=== PATIENT | female | born 1945 | race Caucasian/White ===

== ENCOUNTER → 2016-05-04 | Outpatient (CLI) | payer MEDICARE ==
[~2016-05-04] MED LIST: ABILIFY2 MG PO; ANTIVERT/2525 MG PO; ASPIR LOW81 MG PO; B12,B-12,B 12500 MC1 PO; BAYER ASPIRIN325 MG PO; BUSPAR5 MG PO; CAPSAICIN T; CARDIZEM LA120 MG PO; CELEXA10 MG PO; CELEXA20 MG PO; CLONAZEPAM0.5 MG PO; CLONAZEPAM1 MG PO; Carafate1 GM PO; DEXILANT60 M1 PO; DIOVAN160 M1 PO; DIPHENHYDRAMINE25 M2 PO; KLONOPIN0.5 MG PO; KLONOPIN1 M1 PO; KLONOPIN1 MG PO; LIPITOR20 MG PO; NASONEX0.05 MG/AC NAS; PATADAY 2.5 ML2.5 M1 OP; POTASSIUM20 MEQ PO; PROTONIX40 MG PO; SUPER B COMPLEX PO; SYNTHROID0.025 MG PO; VITAMIN D31000 I1 PO; XARE20MG PO; [UNRECOGNIZED DRUG - CODE] PO; [UNRECOGNIZED DRUG - OTHER] PO
== END ==
LOC: MAMMO 03:01
DX: Z12.31 Encounter for screening mammogram for malignant neoplasm of breast (principal)

== ENCOUNTER 2016-07-26 08:21 | Emergency (ER) | payer MEDICARE ==
[~2016-07-26] VITALS: Ht 157.4 cm; Wt 49.9 kg
[2016-07-26 08:36] LABS: BASO % 0.5 % (0.0-1.0); EOS # 0.1 10*3/uL (0.0-0.4); EOS % 1.9 % (1.0-4.0); HEMATOCRIT 40.4 % (37.0-47.0); HEMOGLOBIN 13.7 g/dl (12.0-16.0); LYMPH # 1.5 10*3/uL (1.3-4.4); LYMPH % 39.5 % (27.0-41.0); MEAN CELL VOLUME 93.1 fl (81.0-99.0); MEAN CORPUSCULAR HGB 31.6 pg (27.0-31.0); MEAN CORPUSCULAR HGB CONC 33.9 g/dl (33.0-37.0); MEAN PLATELET VOLUME 10.2 fl (9.6-12.3); MONO # 0.3 10*3/uL (0.1-1.0); MONO % 8.7 % (3.0-9.0); NEUT # 1.8 10*3/uL (2.3-7.9); NEUT % 49.4 % (47.0-73.0); PLATELET COUNT AUTOMATED 192 10*3/uL (130-400); RED BLOOD COUNT 4.34 10*6/uL (4.10-5.10); RED CELL DISTRI WIDTH 13.2 % (0-14.5); WHITE BLOOD COUNT 3.7 10*3/uL (4.8-10.8)
[2016-07-26] MEDS ORDERED: BUSPAR15 MG PO (08:40)
[2016-07-26] MEDS ORDERED: XANAX0.5 MG PO (08:43)
[2016-07-26 08:44] LABS: INTERNATIONAL NORM RATIO 1.2 (2.0-3.5); PROTHROMBIN TIME 13.1 SECONDS (9.0-12.4)
[2016-07-26] MEDS ORDERED: VITAMIN B121000 MC1 PO (08:45)
[2016-07-26] MEDS ORDERED: MAPAP500 MG PO (08:45)
[2016-07-26 08:52] LABS: ALBUMIN 3.9 gm/dl (3.1-4.5); ALKALINE PHOSPHATASE 50 U/L (45-117); BILIRUBIN, TOTAL 0.5 mg/dl (0.2-1.0); BUN 14 mg/dl (7-24); CARBON DIOXIDE 28 mmol/L (21-32); CHLORIDE 106 mmol/L (98-107); EST GLOM FILT AFRICAN AMERICAN > 60 ml/min; GLUCOSE 82 mg/dL (65-99); MAGNESIUM 2.3 mg/dL (1.5-2.1); POTASSIUM 3.7 mmol/L (3.5-5.1); SGOT/AST 17 IU/L (3-35); SGPT/ALT 23 U/L (12-78); SODIUM 142 mmol/L (136-145); TOTAL PROTEIN 6.4 gm/dL (6.4-8.2)
[2016-07-26 08:54] LABS: TROPONIN I < 0.015 ng/ml (<0.045)
[2016-07-26] MEDS ORDERED: ZOLOFT50 MG PO (09:00)
[2016-07-26 10:42] VITALS: BP 132/71
== END 2016-07-26 10:51 | disposition home or self-care (01) ==
LOC: ED 08:21
PROVIDERS: Emergency Medicine
DX: R00.2 Palpitations (principal); I48.91 Unspecified atrial fibrillation; F32.9 Major depressive disorder, single episode, unspecified; I10 Essential (primary) hypertension; K21.9 Gastro-esophageal reflux disease without esophagitis; E03.9 Hypothyroidism, unspecified; E78.5 Hyperlipidemia, unspecified; Z90.49 Acquired absence of other specified parts of digestive tract; Z79.899 Other long term (current) drug therapy

== ENCOUNTER → 2016-08-23 | Day surgery (SDC) | payer MEDICARE ==
[~2016-08-23] VITALS: Ht 157.4 cm; Wt 49.9 kg
[~2016-08-23] MED LIST changes: +ANUCORT-HC25 MG RC; +BUSPAR15 MG PO; +FAMOTIDINE20 M1 PO; +MAPAP500 MG PO; +VITAMIN B121000 MC1 PO; +XANAX0.5 MG PO; +ZOLOFT50 MG PO
--- NOTE | ~2016-08-23 | O ---
[place], [place] OPERATIVE NOTE NAME: MIRIAN CABEZAS UNIT #: [id number] ROOM: DOCTOR: TRUE DOMINGOYOHAN BIRTHDATE: [birth year] DOS: 08/23/2016 HISTORY OF PRESENT ILLNESS: A 70-year-old patient who has presented with chief complaint of history of diarrhea, dyspepsia, chronic Protonix therapy, history of colonic polyp, change in bowel habit. ALLERGIES: To no known medication. FAMILY HISTORY: Noncontributory. PAST SURGICAL HISTORY: Hysterectomy. PAST MEDICAL HISTORY: Atrial fibrillation, depression, hypertension, hypercholesterolemia, hypothyroidism. SOCIAL HISTORY: Nonsmoker, nonalcohol consumer. PROCEDURE: Todays' procedure part of investigation is colonoscopy and panendoscopy. PREMEDICATION: Versed and Diprivan. SCOPE: Olympus forward viewing colonoscope 10L video. REPORT: After putting the patient in the left lateral position and after application of lubricant to the scope, the scope was introduced; thereafter, under direct visualization, advanced through the length of colon without difficulty. Moderate diverticulosis at the level of sigmoid colon was noticed. Base of the cecum explored, appendiceal orifice identified, and ileocecal valve was defined. Scope was gradually withdrawn back to the sigmoid colon. Sessile polypoid lesion with piecemeal polypectomy eradicated. Air was suctioned out. Back to the rectal pouch, GI reflection of the scope reveals small hemorrhoids, 1 particularly is more agitated and ulcerated at the rectal pouch, location is at 3 o'clock position. Photographed. Air was suctioned out. The patient extubated, tolerated the procedure well. IMPRESSION: Diverticulosis; sessile colonic polyp, sigmoid colon; rectal hemorrhoids. PLAN AND DISCUSSION: Anucort-HC suppository 1 at bedtime for 5 days and thereafter 1 p.r.n. There was no evidence of acute distress or diarrhea, perhaps bacterial overgrowth secondary to moderate diverticulosis is the culprit in her frequent stooling. We may be able to remedy this with addition of Questran 1 every day if the diarrhea continues. On the other hand, we are going to proceed with panendoscopy. [place], [place] OPERATIVE NOTE NAME: MIRIAN CABEZAS UNIT #: [id number] ROOM: DOCTOR: TRUE DOMINGO,YOHAN BIRTHDATE: [birth year] YOHAN BISWAS MD CM:OPRECORD:OPERATIVE NOTE [id number] CHERI BISWAS MD 08/23/16 1259 interface
--- NOTE | ~2016-08-23 | O ---
[place], [place] OPERATIVE NOTE NAME: MIRIAN CABEZAS UNIT #: [id number] ROOM: DOCTOR: TRUE DOMINGO,YOHAN BIRTHDATE: [birth year] DOS: 08/23/2016 INDICATIONS: The patient is a 70-year-old who has presented with persistent dyspepsia despite Protonix therapy. PROCEDURE: Today's procedure part of investigation is panendoscopy plus biopsy. PREMEDICATION: Versed and Diprivan. SCOPE: Olympus forward-viewing gastroscope Q10 video. REPORT: After putting the patient in the left lateral position and after application of lubricant to the scope, the scope was introduced. Thereafter, under direct visualization, I advanced through the length of esophagus without difficulty. Esophagus cervicothoracic distally within normal limits. Small hiatal hernia was noticed. Gastric pouch was entered. Multiple gastric polyps identified. 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 Polypectomy was done for sampling of the polyps. Gastric pouch was entered. Gastritis was seen. Antral biopsy obtained. Duodenal bulb, second and third part within normal limits. The patient was gradually extubated along the lesser curvature. Air was suctioned out. Tolerated the procedure well. IMPRESSION: 1. Small hiatal hernia, multiple gastric polyps, status post polypectomy, samples. 2. Gastritis, status post biopsy. PLAN AND DISCUSSION: This patient has been chronically on PPI therapy. 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 Therefore, I recommend to see if we can switch this patient to famotidine 20 mg 1 every day to see if removal of the PPI will correct the diarrhea as well and this is going to be undertaken here with that prescription on hand. We understand that for the first week she may have experience of dyspepsia because we have switched her from PPI to H2 ector; however, this can be managed with the fact that initially she can take Pepcid 20 mg b.i.d. for 3 days and gradually switching to 1 at night and further management as we go along. Photographic series have been attached to the chart for future reference. I thank you very much indeed for your kind referral. [place], [place] OPERATIVE NOTE NAME: MIRIAN CABEZAS UNIT #: [id number] ROOM: DOCTOR: TRUE DOMINGO,YOHAN BIRTHDATE: [birth year] YOHAN BISWAS MD CM:OPRECORD:OPERATIVE NOTE 1013 [id number] CHERI BISWAS MD 08/23/16 1304 interface
[2016-08-23 08:15] VITALS: BP 112/63
[2016-08-23 10:00] VITALS: BP 129/69
[2016-08-23 10:15] VITALS: BP 129/71
[2016-08-23 10:30] VITALS: BP 124/68
== END | disposition home or self-care (01) ==
LOC: SDC 08-18 12:30
DX: K63.5 Polyp of colon (principal); K29.50 Unspecified chronic gastritis without bleeding; K31.7 Polyp of stomach and duodenum; K57.30 Diverticulosis of large intestine without perforation or abscess without bleeding; K64.9 Unspecified hemorrhoids; K44.9 Diaphragmatic hernia without obstruction or gangrene; I48.91 Unspecified atrial fibrillation; F32.9 Major depressive disorder, single episode, unspecified; I10 Essential (primary) hypertension; E78.00 Pure hypercholesterolemia, unspecified; E03.9 Hypothyroidism, unspecified; Z90.710 Acquired absence of both cervix and uterus; K21.9 Gastro-esophageal reflux disease without esophagitis; F41.9 Anxiety disorder, unspecified; Z80.9 Family history of malignant neoplasm, unspecified; Z82.49 Family history of ischemic heart disease and other diseases of the circulatory system; Z82.5 Family history of asthma and other chronic lower respiratory diseases

== ENCOUNTER → 2016-12-27 | Outpatient (CLI) | payer MEDICARE | END | disposition home or self-care (01) | LOC: US 01:48 | DX: R10.13 Epigastric pain (principal); R19.09 Other intra-abdominal and pelvic swelling, mass and lump; Z90.49 Acquired absence of other specified parts of digestive tract ==

== ENCOUNTER → 2017-02-19 | Outpatient (CLI) | payer MEDICARE | LOC: MRI 03:44 | DX: K66.8 Other specified disorders of peritoneum (principal); K57.30 Diverticulosis of large intestine without perforation or abscess without bleeding; M51.36 Other intervertebral disc degeneration, lumbar region; M51.37 Other intervertebral disc degeneration, lumbosacral region; M51.26 Other intervertebral disc displacement, lumbar region; M51.27 Other intervertebral disc displacement, lumbosacral region; I10 Essential (primary) hypertension; N85.8 Other specified noninflammatory disorders of uterus; Z90.710 Acquired absence of both cervix and uterus; Z90.49 Acquired absence of other specified parts of digestive tract ==

== ENCOUNTER → 2017-06-13 | Outpatient (CLI) | payer MEDICARE | END | disposition home or self-care (01) | LOC: MAMMO 05-31 00:18 | DX: Z12.31 Encounter for screening mammogram for malignant neoplasm of breast (principal) ==

== ENCOUNTER 2017-10-23 22:51 | Emergency (ER) | payer MEDICARE ==
[~2017-10-23] VITALS: Ht 160 cm; Wt 61.2 kg
[2017-10-23] MEDS ORDERED: PRILOSEC20 M1 PO (23:11)
[2017-10-23 23:18] VITALS: BP 129/69
== END 2017-10-23 23:44 | disposition home or self-care (01) ==
LOC: ED 22:51
DX: R04.0 Epistaxis (principal); I48.91 Unspecified atrial fibrillation; K21.9 Gastro-esophageal reflux disease without esophagitis; E78.5 Hyperlipidemia, unspecified; E03.9 Hypothyroidism, unspecified; Z88.8 Allergy status to other drugs, medicaments and biological substances; Z79.899 Other long term (current) drug therapy

== ENCOUNTER → 2018-02-05 | Outpatient (CLI) | payer MEDICARE ==
[~2018-02-05] MED LIST changes: +PRILOSEC20 M1 PO
== END | disposition home or self-care (01) ==
LOC: RAD 11:53
DX: M79.672 Pain in left foot (principal)

== ENCOUNTER → 2018-03-11 | Outpatient (CLI) | payer MEDICARE | END | disposition home or self-care (01) | LOC: ORTHO 15:56 | DX: M25.572 Pain in left ankle and joints of left foot (principal); R20.2 Paresthesia of skin; M25.472 Effusion, left ankle ==

== ENCOUNTER → 2018-07-10 | Outpatient (CLI) | payer MEDICARE | END | disposition home or self-care (01) | LOC: MAMMO 01:39 | DX: Z12.31 Encounter for screening mammogram for malignant neoplasm of breast (principal); E78.00 Pure hypercholesterolemia, unspecified; E03.9 Hypothyroidism, unspecified; I10 Essential (primary) hypertension ==

== ENCOUNTER → 2019-01-16 | Outpatient (CLI) | payer MEDICARE | END | disposition home or self-care (01) | LOC: RAD 12:33 | DX: Z23 Encounter for immunization (principal); Z13.820 Encounter for screening for osteoporosis; Z13.6 Encounter for screening for cardiovascular disorders; I10 Essential (primary) hypertension; I48.91 Unspecified atrial fibrillation; E03.9 Hypothyroidism, unspecified; R29.890 Loss of height; K58.9 Irritable bowel syndrome, unspecified; E78.5 Hyperlipidemia, unspecified; E55.9 Vitamin D deficiency, unspecified; Z78.0 Asymptomatic menopausal state; Z90.710 Acquired absence of both cervix and uterus ==

== ENCOUNTER → 2019-01-17 | Outpatient (CLI) | payer MEDICARE | END | disposition home or self-care (01) | LOC: US 00:58 | DX: Z23 Encounter for immunization (principal); Z13.6 Encounter for screening for cardiovascular disorders; Z13.820 Encounter for screening for osteoporosis; I48.91 Unspecified atrial fibrillation; I10 Essential (primary) hypertension; E03.9 Hypothyroidism, unspecified; E78.5 Hyperlipidemia, unspecified; Z53.20 Procedure and treatment not carried out because of patient's decision for unspecified reasons; Z78.0 Asymptomatic menopausal state ==

== ENCOUNTER → 2019-01-22 | Outpatient (CLI) | payer MEDICARE | END | disposition home or self-care (01) | LOC: RAD 15:17 | DX: M79.672 Pain in left foot (principal); M79.671 Pain in right foot; M72.2 Plantar fascial fibromatosis ==

== ENCOUNTER → 2019-02-11 | Outpatient (CLI) | payer MEDICARE | END | disposition home or self-care (01) | LOC: RAD 14:25 | DX: M79.605 Pain in left leg (principal) ==

== ENCOUNTER → 2019-06-02 | Outpatient (CLI) | payer MEDICARE | END | disposition home or self-care (01) | LOC: RAD 11:48 | DX: M17.11 Unilateral primary osteoarthritis, right knee (principal) ==

== ENCOUNTER 2019-09-21 05:50 | Emergency (ER) | payer MEDICARE ==
[2019-09-21 06:11] LABS: BASO % 0.7 % (0.0-1.0); EOS # 0.1 10*3/uL (0.0-0.4); EOS % 2.1 % (1.0-4.0); HEMATOCRIT 39.4 % (37.0-47.0); LYMPH # 1.5 10*3/uL (1.3-4.4); LYMPH % 34.8 % (27.0-41.0); MEAN CELL VOLUME 92.9 fl (81.0-99.0); MEAN CORPUSCULAR HGB 30.2 pg (27.0-31.0); MEAN CORPUSCULAR HGB CONC 32.5 g/dl (33.0-37.0); MONO # 0.4 10*3/uL (0.1-1.0); MONO % 9.3 % (3.0-9.0); NEUT # 2.3 10*3/uL (2.3-7.9); NEUT % 52.9 % (47.0-73.0); PLATELET COUNT AUTOMATED 197 10*3/uL (130-400); RED BLOOD COUNT 4.24 10*6/uL (4.10-5.10); RED CELL DISTRI WIDTH 14.3 % (0-14.5); WHITE BLOOD COUNT 4.3 10*3/uL (4.8-10.8)
[2019-09-21 06:21] LABS: ACT PARTIAL THROMBO TIME 27.9 SECONDS (20.0-32.1); INTERNATIONAL NORM RATIO 1.1 (2.0-3.5)
[2019-09-21 06:24] LABS: BILIRUBIN NEGATIVE (NEGATIVE); CLARITY CLEAR (CLEAR); COLOR YELLOW (YELLOW); GLUCOSE NEGATIVE (NEGATIVE); KETONE NEGATIVE (NEGATIVE)
[2019-09-21 06:25] LABS: BACTERIA TRACE; BLOOD NEGATIVE (NEGATIVE); LEUKO ESTERASE NEGATIVE (NEGATIVE); NITRITE NEGATIVE (NEGATIVE); RBC 0-2 rbc/hpf (0-2); SPECIFIC GRAVITY 1.005 (1.005-1.030); UROBILINOGEN 0.2 E.U./dl (0.2-1.0); WBC 0-2 wbc/hpf (0-5)
[2019-09-21 06:27] LABS: ALBUMIN 3.9 gm/dl (3.1-4.5); ALKALINE PHOSPHATASE 57 U/L (45-117); BUN 10 mg/dl (7-24); CHLORIDE 107 mmol/L (98-107); CREATININE 1.03 mg/dL (0.55-1.02); POTASSIUM 3.5 mmol/L (3.5-5.1); SGOT/AST 19 IU/L (3-35); SGPT/ALT 19 U/L (12-78); SODIUM 140 mmol/L (136-145); TOTAL PROTEIN 6.8 gm/dL (6.4-8.2); TROPONIN I < 0.015 ng/ml (<0.045)
[2019-09-21 07:44] VITALS: BP 132/70
== END 2019-09-21 08:11 | disposition home or self-care (01) ==
LOC: ED 05:50
PROVIDERS: Emergency Medicine Emergency Medical Services
DX: I48.20 Chronic atrial fibrillation, unspecified (principal); K21.9 Gastro-esophageal reflux disease without esophagitis; I10 Essential (primary) hypertension; E78.5 Hyperlipidemia, unspecified; E03.9 Hypothyroidism, unspecified; Z88.8 Allergy status to other drugs, medicaments and biological substances; Z79.899 Other long term (current) drug therapy

== ENCOUNTER → 2019-09-25 | Outpatient (CLI) | payer MEDICARE ==
[~2019-09-25] MED LIST changes: +CALCIUM500 M1 PO; +PEPCID20 MG PO; +VITAMIN E200 UNI1 PO
== END | disposition home or self-care (01) ==
LOC: MAMMO 09:55
DX: Z12.31 Encounter for screening mammogram for malignant neoplasm of breast (principal)

== ENCOUNTER → 2019-10-29 | Outpatient (CLI) | payer MEDICARE | END | disposition home or self-care (01) | LOC: COVID19 10-15 00:15 | DX: Z20.828 Contact with and (suspected) exposure to other viral communicable diseases (principal) ==

== ENCOUNTER → 2019-11-03 | Day surgery (SDC) | payer MEDICARE ==
[~2019-11-03] VITALS: Ht 160 cm; Wt 68.0 kg
[2019-11-03 08:08] VITALS: BP 141/62
[2019-11-03 10:33] VITALS: BP 137/68
[2019-11-03 10:48] VITALS: BP 121/70
[2019-11-03 11:03] VITALS: BP 130/65
== END | disposition home or self-care (01) ==
LOC: SDC 10-16 10:15
DX: D64.9 Anemia, unspecified (principal); D12.2 Benign neoplasm of ascending colon; K29.50 Unspecified chronic gastritis without bleeding; K59.00 Constipation, unspecified; I10 Essential (primary) hypertension; E78.00 Pure hypercholesterolemia, unspecified; I48.91 Unspecified atrial fibrillation; K21.9 Gastro-esophageal reflux disease without esophagitis; F41.9 Anxiety disorder, unspecified; F32.9 Major depressive disorder, single episode, unspecified; K44.9 Diaphragmatic hernia without obstruction or gangrene; Z98.890 Other specified postprocedural states; Z79.899 Other long term (current) drug therapy; Z83.6 Family history of other diseases of the respiratory system

== ENCOUNTER → 2020-02-26 | Outpatient (CLI) | payer MEDICARE | END | disposition home or self-care (01) | LOC: LAB 02-20 01:48 → CT 02-20 13:00 → LAB 12:47 | PROVIDERS: ATTEND Surgery | DX: K76.0 Fatty (change of) liver, not elsewhere classified (principal); K44.9 Diaphragmatic hernia without obstruction or gangrene; R43.9 Unspecified disturbances of smell and taste; D48.5 Neoplasm of uncertain behavior of skin; K57.30 Diverticulosis of large intestine without perforation or abscess without bleeding; N94.89 Other specified conditions associated with female genital organs and menstrual cycle; Z79.01 Long term (current) use of anticoagulants; Z90.49 Acquired absence of other specified parts of digestive tract ==

== ENCOUNTER 2020-03-13 04:07 | Emergency (ER) | payer MEDICARE ==
[~2020-03-13] VITALS: Ht 167.6 cm; Wt 87.1 kg
[2020-03-13 04:52] LABS: BASO % 0.2 % (0.0-1.0); EOS # 0.1 10*3/uL (0.0-0.4); EOS % 1.9 % (1.0-4.0); HEMATOCRIT 38.9 % (37.0-47.0); LYMPH # 1.5 10*3/uL (1.3-4.4); LYMPH % 28.2 % (27.0-41.0); MEAN CELL VOLUME 91.5 fl (81.0-99.0); MEAN CORPUSCULAR HGB 28.9 pg (27.0-31.0); MEAN CORPUSCULAR HGB CONC 31.6 g/dl (33.0-37.0); MEAN PLATELET VOLUME 9.6 fl (9.6-12.3); MONO # 0.5 10*3/uL (0.1-1.0); MONO % 10.3 % (3.0-9.0); NEUT # 3.1 10*3/uL (2.3-7.9); NEUT % 59.2 % (47.0-73.0); PLATELET COUNT AUTOMATED 213 10*3/uL (130-400); RED BLOOD COUNT 4.25 10*6/uL (4.10-5.10); RED CELL DISTRI WIDTH 13.8 % (0-14.5); WHITE BLOOD COUNT 5.2 10*3/uL (4.8-10.8)
[2020-03-13 05:17] LABS: ALBUMIN 3.9 gm/dl (3.1-4.5); ALKALINE PHOSPHATASE 66 U/L (45-117); BUN 12 mg/dl (7-24); CHLORIDE 109 mmol/L (98-107); CREATININE 0.94 mg/dL (0.55-1.02); SGOT/AST 22 IU/L (3-35); SGPT/ALT 22 U/L (12-78); SODIUM 142 mmol/L (136-145)
[2020-03-13 05:18] LABS: TROPONIN I < 0.015 ng/ml (<0.045)
[2020-03-13 05:19] LABS: POTASSIUM 3.7 mmol/L (3.5-5.1)
[2020-03-13 06:50] VITALS: BP 128/74
== END 2020-03-13 07:13 | disposition home or self-care (01) ==
LOC: ED 04:07
PROVIDERS: Emergency Medicine
DX: R00.2 Palpitations (principal); I10 Essential (primary) hypertension; E78.00 Pure hypercholesterolemia, unspecified; I48.91 Unspecified atrial fibrillation; F41.9 Anxiety disorder, unspecified; F32.9 Major depressive disorder, single episode, unspecified; K21.9 Gastro-esophageal reflux disease without esophagitis; E78.5 Hyperlipidemia, unspecified; E03.9 Hypothyroidism, unspecified; Z88.8 Allergy status to other drugs, medicaments and biological substances; Z79.899 Other long term (current) drug therapy; Z90.711 Acquired absence of uterus with remaining cervical stump; Z98.61 Coronary angioplasty status; Z90.49 Acquired absence of other specified parts of digestive tract

== ENCOUNTER → 2020-07-07 | Outpatient (CLI) | payer MEDICARE | END | disposition home or self-care (01) | LOC: RESCLI 00:38 | PROVIDERS: ATTEND Internal Medicine Nephrology | DX: I10 Essential (primary) hypertension (principal); I48.91 Unspecified atrial fibrillation; F41.9 Anxiety disorder, unspecified; F32.9 Major depressive disorder, single episode, unspecified; E78.5 Hyperlipidemia, unspecified; E03.9 Hypothyroidism, unspecified; K21.9 Gastro-esophageal reflux disease without esophagitis; E55.9 Vitamin D deficiency, unspecified; J30.2 Other seasonal allergic rhinitis; Z79.899 Other long term (current) drug therapy ==

== ENCOUNTER → 2020-08-11 | Outpatient (CLI) | payer MEDICARE | END | disposition home or self-care (01) | LOC: RESCLI 03:27 | PROVIDERS: ATTEND Internal Medicine Nephrology | DX: I10 Essential (primary) hypertension (principal); I48.91 Unspecified atrial fibrillation; F41.9 Anxiety disorder, unspecified; F32.9 Major depressive disorder, single episode, unspecified; E78.5 Hyperlipidemia, unspecified; E03.9 Hypothyroidism, unspecified; K21.9 Gastro-esophageal reflux disease without esophagitis; E55.9 Vitamin D deficiency, unspecified; J30.2 Other seasonal allergic rhinitis; Z79.899 Other long term (current) drug therapy; Z98.890 Other specified postprocedural states; Z88.8 Allergy status to other drugs, medicaments and biological substances ==

== ENCOUNTER → 2020-10-21 | Outpatient (CLI) | payer MEDICARE | END | disposition home or self-care (01) | LOC: MAMMO 03:32 | PROVIDERS: ATTEND Nurse Practitioner Family | DX: Z12.31 Encounter for screening mammogram for malignant neoplasm of breast (principal); N64.89 Other specified disorders of breast ==

== ENCOUNTER → 2020-11-24 | Outpatient (CLI) | payer MEDICARE | END | disposition home or self-care (01) | LOC: RESCLI 00:22 | PROVIDERS: ATTEND Internal Medicine Nephrology | DX: I10 Essential (primary) hypertension (principal); I48.91 Unspecified atrial fibrillation; F41.9 Anxiety disorder, unspecified; F32.9 Major depressive disorder, single episode, unspecified; E78.5 Hyperlipidemia, unspecified; E03.9 Hypothyroidism, unspecified; K21.9 Gastro-esophageal reflux disease without esophagitis; E55.9 Vitamin D deficiency, unspecified; J30.2 Other seasonal allergic rhinitis; Z88.8 Allergy status to other drugs, medicaments and biological substances; Z79.899 Other long term (current) drug therapy ==

== ENCOUNTER 2021-02-04 09:32 | Emergency (ER) | payer MEDICARE ==
[~2021-02-04] VITALS: Wt 72.6 kg
[2021-02-04 09:56] LABS: BASO % 0.5 % (0.0-1.0); EOS # 0.1 10*3/uL (0.0-0.4); EOS % 2.8 % (1.0-4.0); HEMATOCRIT 39.5 % (37.0-47.0); LYMPH # 1.3 10*3/uL (1.3-4.4); LYMPH % 33.4 % (27.0-41.0); MEAN CORPUSCULAR HGB 30.7 pg (27.0-31.0); MEAN CORPUSCULAR HGB CONC 32.7 g/dl (33.0-37.0); MEAN PLATELET VOLUME 10.3 fl (9.6-12.3); MONO # 0.4 10*3/uL (0.1-1.0); MONO % 11.4 % (3.0-9.0); NEUT % 51.6 % (47.0-73.0); PLATELET COUNT AUTOMATED 201 10*3/uL (130-400); RED CELL DISTRI WIDTH 14.6 % (0-14.5); WHITE BLOOD COUNT 3.9 10*3/uL (4.8-10.8)
[2021-02-04 10:07] LABS: ACT PARTIAL THROMBO TIME 28.8 SECONDS (20.0-32.1); INTERNATIONAL NORM RATIO 1.1 (2.0-3.5)
[2021-02-04 10:13] LABS: ALBUMIN 3.8 gm/dl (3.1-4.5); ALKALINE PHOSPHATASE 52 U/L (45-117); BUN 13 mg/dl (7-24); CHLORIDE 110 mmol/L (98-107); CREATININE 1.09 mg/dL (0.55-1.02); POTASSIUM 3.9 mmol/L (3.5-5.1); SGOT/AST 19 IU/L (3-35); SGPT/ALT 22 U/L (12-78); SODIUM 140 mmol/L (136-145); TOTAL PROTEIN 6.4 gm/dL (6.4-8.2)
[2021-02-04 10:18] LABS: TROPONIN I < 0.015 ng/ml (<0.045)
[2021-02-04 11:15] LABS: BILIRUBIN Negative (Negative); BLOOD Negative (Negative); CLARITY Clear (Clear); COLOR Yellow (Yellow); GLUCOSE Negative (Negative); KETONE Negative (Negative); LEUKO ESTERASE Negative (Negative); NITRITE Negative (Negative); SPECIFIC GRAVITY <= 1.005 (1.001-1.030); UROBILINOGEN 0.2 E.U./dl (0.0-1.0)
[2021-02-04 11:17] VITALS: BP 154/79
[2021-02-04 11:24] LABS: EPITHELIAL CELLS 0-2; RBC 0-2 rbc/hpf (0-2); WBC 0-2 wbc/hpf (0-5)
== END 2021-02-04 12:05 | disposition home or self-care (01) ==
LOC: ED 09:32
PROVIDERS: Emergency Medicine
DX: I48.0 Paroxysmal atrial fibrillation (principal); K21.9 Gastro-esophageal reflux disease without esophagitis; I10 Essential (primary) hypertension; E03.9 Hypothyroidism, unspecified; E78.5 Hyperlipidemia, unspecified; Z88.8 Allergy status to other drugs, medicaments and biological substances; Z79.899 Other long term (current) drug therapy

== ENCOUNTER → 2021-02-23 | Outpatient (CLI) | payer MEDICARE | END | disposition home or self-care (01) | LOC: RESCLI 00:45 | PROVIDERS: ATTEND Internal Medicine Nephrology | DX: J06.9 Acute upper respiratory infection, unspecified (principal); J30.2 Other seasonal allergic rhinitis; I48.91 Unspecified atrial fibrillation; E55.9 Vitamin D deficiency, unspecified; E78.49 Other hyperlipidemia; F32.9 Major depressive disorder, single episode, unspecified; F41.9 Anxiety disorder, unspecified; K21.9 Gastro-esophageal reflux disease without esophagitis; I10 Essential (primary) hypertension; E03.9 Hypothyroidism, unspecified; Z79.899 Other long term (current) drug therapy; Z88.8 Allergy status to other drugs, medicaments and biological substances; Z98.890 Other specified postprocedural states ==

== ENCOUNTER → 2021-08-24 | Outpatient (CLI) | payer MEDICARE | END | disposition home or self-care (01) | LOC: RESCLI 00:35 | PROVIDERS: ATTEND Internal Medicine Nephrology | DX: I10 Essential (primary) hypertension (principal); J30.2 Other seasonal allergic rhinitis; E03.9 Hypothyroidism, unspecified; D50.8 Other iron deficiency anemias; K21.9 Gastro-esophageal reflux disease without esophagitis; F41.9 Anxiety disorder, unspecified; I48.91 Unspecified atrial fibrillation; E78.5 Hyperlipidemia, unspecified; F32.A Depression, unspecified; Z79.899 Other long term (current) drug therapy; K44.9 Diaphragmatic hernia without obstruction or gangrene; K57.92 Diverticulitis of intestine, part unspecified, without perforation or abscess without bleeding ==

== ENCOUNTER 2021-09-18 20:00 | Emergency (ER) | payer MEDICARE ==
[~2021-09-18] VITALS: Ht 160 cm; Wt 76.2 kg
[2021-09-18 20:03] VITALS: BP 163/69
[2021-09-18] MEDS ORDERED: HYDROCODONE-AC1 EAC1 PO (23:14)
== END 2021-09-18 23:49 | disposition home or self-care (01) ==
LOC: ED 20:00
DX: S62.102A Fracture of unspecified carpal bone, left wrist, initial encounter for closed fracture (principal); I48.91 Unspecified atrial fibrillation; K21.9 Gastro-esophageal reflux disease without esophagitis; I10 Essential (primary) hypertension; E78.5 Hyperlipidemia, unspecified; E03.9 Hypothyroidism, unspecified; Z79.899 Other long term (current) drug therapy; Z88.1 Allergy status to other antibiotic agents; W18.39XA Other fall on same level, initial encounter; Y93.89 Activity, other specified; Y92.89 Other specified places as the place of occurrence of the external cause; Y99.8 Other external cause status

== ENCOUNTER → 2021-09-28 | Outpatient (CLI) | payer MEDICARE ==
[~2021-09-28] MED LIST changes: +HYDROCODONE-AC1 EAC1 PO
== END | disposition home or self-care (01) ==
LOC: ORTHO 00:42
PROVIDERS: ATTEND Orthopaedic Surgery
DX: S52.532D Colles' fracture of left radius, subsequent encounter for closed fracture with routine healing (principal); M85.88 Other specified disorders of bone density and structure, other site; X58.XXXD Exposure to other specified factors, subsequent encounter

== ENCOUNTER → 2021-11-08 | Outpatient (CLI) | payer MEDICARE | END | disposition home or self-care (01) | LOC: CT 10-27 10:00 | PROVIDERS: ATTEND Nurse Practitioner Family | DX: R10.13 Epigastric pain (principal); K46.9 Unspecified abdominal hernia without obstruction or gangrene ==

== ENCOUNTER 2021-11-09 10:02 | Emergency (ER) | payer MEDICARE ==
[~2021-11-09] VITALS: Ht 160 cm; Wt 70.3 kg
[2021-11-09 10:08] VITALS: BP 153/77
[2021-11-09 10:47] LABS: BASO % 0.2 % (0.0-1.0); EOS % 0.4 % (1.0-4.0); HEMATOCRIT 40.4 % (37.0-47.0); LYMPH # 0.6 10*3/uL (1.3-4.4); LYMPH % 12.6 % (27.0-41.0); MEAN CELL VOLUME 93.1 fl (81.0-99.0); MEAN CORPUSCULAR HGB 31.6 pg (27.0-31.0); MEAN CORPUSCULAR HGB CONC 33.9 g/dl (33.0-37.0); MEAN PLATELET VOLUME 9.8 fl (9.6-12.3); MONO # 0.4 10*3/uL (0.1-1.0); MONO % 9.2 % (3.0-9.0); NEUT # 3.4 10*3/uL (2.3-7.9); NEUT % 77.4 % (47.0-73.0); PLATELET COUNT AUTOMATED 199 10*3/uL (130-400); RED BLOOD COUNT 4.34 10*6/uL (4.10-5.10); RED CELL DISTRI WIDTH 13.9 % (0-14.5); WHITE BLOOD COUNT 4.5 10*3/uL (4.8-10.8)
[2021-11-09 10:57] LABS: ACT PARTIAL THROMBO TIME 29.1 SECONDS (20.0-32.1); INTERNATIONAL NORM RATIO 1.2 (2.0-3.5)
[2021-11-09 11:05] LABS: ALKALINE PHOSPHATASE 55 U/L (45-117); BUN 5 mg/dl (7-24); CHLORIDE 111 mmol/L (98-107); CREATININE 0.87 mg/dL (0.55-1.02); LIPASE 140 U/L (73-393); POTASSIUM 3.6 mmol/L (3.5-5.1); SGOT/AST 17 IU/L (3-35); SGPT/ALT 16 U/L (12-78); SODIUM 141 mmol/L (136-145); TOTAL PROTEIN 6.2 gm/dL (6.4-8.2)
[2021-11-09 11:11] LABS: BILIRUBIN Negative (Negative); BLOOD Negative (Negative); CLARITY Clear (Clear); COLOR Yellow (Yellow); GLUCOSE Negative (Negative); KETONE Negative (Negative); LEUKO ESTERASE Trace (Negative); NITRITE Negative (Negative); PH 5.5 (4.5-8.0); UROBILINOGEN 0.2 E.U./dl (0.0-1.0)
[2021-11-09 11:12] LABS: ETHYL ALCOHOL < 3.0 mg/dl (<3)
[2021-11-09 11:25] LABS: URINE AMPHETAMINES < 1000 (1000ng/ml); URINE BARBITURATES < 200 (200ng/ml); URINE BENZODIAZEPINES > 200 (200ng/ml); URINE CANNABINOIDS (THC) < 50 (50ng/ml); URINE COCAINE < 300 (300ng/ml); URINE METHADONE < 300 (300ng/ml); URINE OPIATES < 300 (300ng/ml)
[2021-11-09 11:30] LABS: BACTERIA 2+; MUCOUS 1+
[2021-11-09 11:31] LABS: URINE PHENCYCLIDINE < 25 (25ng/ml)
== END 2021-11-09 13:12 | disposition admitted as inpatient to this hospital (09) ==
LOC: ED 10:02
PROVIDERS: Emergency Medicine
DX: F41.9 Anxiety disorder, unspecified (principal); Z20.822 Contact with and (suspected) exposure to COVID-19; Z90.710 Acquired absence of both cervix and uterus; Z90.49 Acquired absence of other specified parts of digestive tract; Z79.899 Other long term (current) drug therapy; Z88.1 Allergy status to other antibiotic agents

== ENCOUNTER 2021-11-09 11:04 | Inpatient (IN) | payer MEDICARE ==
[~2021-11-09] VITALS: Ht 160 cm; Wt 68.5 kg
[2021-11-09 14:48] VITALS: BP 147/63
[2021-11-09 19:10] VITALS: BP 108/54
[2021-11-09 20:00] VITALS: BP 108/54
[2021-11-10 06:37] LABS: THYROID STIM HORMONE (HS) 0.904 uIU/ml (0.358-4.75)
[2021-11-10 07:15] LABS: VITAMIN D, 25-HYDROXY 51.8 ng/mL (30-100)
[2021-11-10 08:00] VITALS: BP 108/60
[2021-11-10 20:00] VITALS: BP 108/51
[2021-11-10 22:05] VITALS: BP 108/62
[2021-11-11 07:08] VITALS: BP 121/60
[2021-11-11 20:00] VITALS: BP 117/62
[2021-11-12 07:23] VITALS: BP 122/56
[2021-11-12 20:00] VITALS: BP 118/54
[2021-11-13 08:00] VITALS: BP 132/76
[2021-11-13 20:12] VITALS: BP 146/62
[2021-11-14 07:05] VITALS: BP 134/58
[2021-11-14 20:00] VITALS: BP 124/52
[2021-11-15 08:02] VITALS: BP 137/76
[2021-11-15 19:40] VITALS: BP 138/74
[2021-11-15 19:47] VITALS: BP 124/59
[2021-11-16 07:13] VITALS: BP 139/82
[2021-11-16 20:00] VITALS: BP 144/78
[2021-11-17 08:00] VITALS: BP 120/55
[2021-11-17 20:00] VITALS: BP 120/58
[2021-11-18 08:00] VITALS: BP 114/51
[2021-11-18 20:00] VITALS: BP 116/59
[2021-11-19 07:50] VITALS: BP 126/56
[2021-11-19 11:29] LABS: BASO % 0.7 % (0.0-1.0); EOS # 0.1 10*3/uL (0.0-0.4); EOS % 2.7 % (1.0-4.0); LYMPH # 0.9 10*3/uL (1.3-4.4); LYMPH % 21.1 % (27.0-41.0); MEAN CELL VOLUME 94.3 fl (81.0-99.0); MEAN CORPUSCULAR HGB 31.6 pg (27.0-31.0); MEAN CORPUSCULAR HGB CONC 33.5 g/dl (33.0-37.0); MEAN PLATELET VOLUME 9.8 fl (9.6-12.3); MONO # 0.4 10*3/uL (0.1-1.0); MONO % 9.6 % (3.0-9.0); NEUT # 2.9 10*3/uL (2.3-7.9); NEUT % 65.7 % (47.0-73.0); PLATELET COUNT AUTOMATED 193 10*3/uL (130-400); RED BLOOD COUNT 4.24 10*6/uL (4.10-5.10); RED CELL DISTRI WIDTH 13.8 % (0-14.5); WHITE BLOOD COUNT 4.4 10*3/uL (4.8-10.8)
[2021-11-19 11:50] LABS: ALKALINE PHOSPHATASE 54 U/L (45-117); BUN 12 mg/dl (7-24); CHLORIDE 109 mmol/L (98-107); CREATININE 0.92 mg/dL (0.55-1.02); SGOT/AST 14 IU/L (3-35); SGPT/ALT 16 U/L (12-78); SODIUM 141 mmol/L (136-145)
[2021-11-19 20:00] VITALS: BP 134/62
[2021-11-20 06:58] VITALS: BP 120/55
[2021-11-20 20:16] VITALS: BP 138/65
[2021-11-21 08:00] VITALS: BP 131/55
[2021-11-21 20:04] VITALS: BP 126/65
[2021-11-22 07:17] VITALS: BP 114/66
[2021-11-22 20:00] VITALS: BP 133/61
[2021-11-23 07:28] VITALS: BP 112/58
[2021-11-23 20:00] VITALS: BP 121/55
[2021-11-24 08:00] VITALS: BP 149/71
[2021-11-24] MEDS ORDERED: DULOXETINE HCL60 MG PO (09:16)
[2021-11-24] MEDS ORDERED: CLONAZEPAM1 MG PO (09:16)
[2021-11-24] MEDS ORDERED: CLONAZEPAM0.5 M2 PO (09:16)
[2021-11-24] MEDS ORDERED: DICLOFENAC SOD100 G1 T (09:16)
== END 2021-11-24 17:40 | disposition home health service (06) | DRG 880 ==
LOC: 3N 11:04
PROVIDERS: Counselor Professional; ADMIT Psychiatry & Neurology Psychiatry; ATTEND Psychiatry & Neurology Psychiatry
DX: F41.0 Panic disorder [episodic paroxysmal anxiety] (principal); F33.2 Major depressive disorder, recurrent severe without psychotic features; I48.91 Unspecified atrial fibrillation; F41.1 Generalized anxiety disorder; K21.9 Gastro-esophageal reflux disease without esophagitis; E78.5 Hyperlipidemia, unspecified; E03.9 Hypothyroidism, unspecified; F42.9 Obsessive-compulsive disorder, unspecified; E78.2 Mixed hyperlipidemia; S62.102D Fracture of unspecified carpal bone, left wrist, subsequent encounter for fracture with routine healing; Z88.8 Allergy status to other drugs, medicaments and biological substances; S52.532D Colles' fracture of left radius, subsequent encounter for closed fracture with routine healing; X58.XXXA Exposure to other specified factors, initial encounter; Y93.89 Activity, other specified; Y92.89 Other specified places as the place of occurrence of the external cause; Y99.8 Other external cause status

== ENCOUNTER → 2021-12-20 | Outpatient (CLI) | payer MEDICARE ==
[~2021-12-20] MED LIST changes: +CLONAZEPAM0.5 M2 PO; +DICLOFENAC SOD100 G1 T; +DULOXETINE HCL60 MG PO
== END | disposition home or self-care (01) ==
LOC: RAD 13:48
PROVIDERS: ATTEND Orthopaedic Surgery
DX: S52.532D Colles' fracture of left radius, subsequent encounter for closed fracture with routine healing (principal); M19.032 Primary osteoarthritis, left wrist; M81.0 Age-related osteoporosis without current pathological fracture; X58.XXXD Exposure to other specified factors, subsequent encounter

== ENCOUNTER → 2022-02-06 | Outpatient (CLI) | payer MEDICARE | END | disposition home or self-care (01) | LOC: MRI 02:30 | PROVIDERS: ATTEND Nurse Practitioner Family | DX: R42 Dizziness and giddiness (principal); R29.6 Repeated falls ==

== ENCOUNTER → 2022-02-28 | Outpatient (CLI) | payer MEDICARE | END | disposition home or self-care (01) | LOC: RESCLI 14:55 | PROVIDERS: ATTEND Internal Medicine | DX: K59.00 Constipation, unspecified (principal); K21.9 Gastro-esophageal reflux disease without esophagitis; I48.91 Unspecified atrial fibrillation; Z00.00 Encounter for general adult medical examination without abnormal findings; I10 Essential (primary) hypertension; E03.9 Hypothyroidism, unspecified; E78.5 Hyperlipidemia, unspecified; J30.2 Other seasonal allergic rhinitis; F32.9 Major depressive disorder, single episode, unspecified; E55.9 Vitamin D deficiency, unspecified; D64.9 Anemia, unspecified; R52 Pain, unspecified; M19.90 Unspecified osteoarthritis, unspecified site; Z88.8 Allergy status to other drugs, medicaments and biological substances; Z79.899 Other long term (current) drug therapy; Z72.89 Other problems related to lifestyle ==

== ENCOUNTER → 2022-03-06 | Outpatient (CLI) | payer MEDICARE | END | disposition home or self-care (01) | LOC: MAMMO 00:23 | PROVIDERS: ATTEND Nurse Practitioner Family | DX: Z12.31 Encounter for screening mammogram for malignant neoplasm of breast (principal) ==

== ENCOUNTER → 2022-03-16 | Outpatient (CLI) | payer MEDICARE | END | disposition home or self-care (01) | LOC: US 00:22 | PROVIDERS: ATTEND Nurse Practitioner Family | DX: N63.11 Unspecified lump in the right breast, upper outer quadrant (principal); N60.01 Solitary cyst of right breast; R92.8 Other abnormal and inconclusive findings on diagnostic imaging of breast ==

== ENCOUNTER → 2022-03-21 | Outpatient (CLI) | payer MEDICARE ==
[2022-03-21 10:26] LABS: BASO % 0.5 % (0.0-1.0); EOS # 0.1 10*3/uL (0.0-0.4); EOS % 1.4 % (1.0-4.0); HEMATOCRIT 40.5 % (37.0-47.0); LYMPH # 1.4 10*3/uL (1.3-4.4); MEAN CELL VOLUME 95.5 fl (81.0-99.0); MEAN CORPUSCULAR HGB 32.1 pg (27.0-31.0); MEAN CORPUSCULAR HGB CONC 33.6 g/dl (33.0-37.0); MONO # 0.5 10*3/uL (0.1-1.0); MONO % 11.9 % (3.0-9.0); NEUT # 2.4 10*3/uL (2.3-7.9); PLATELET COUNT AUTOMATED 202 10*3/uL (130-400); RED BLOOD COUNT 4.24 10*6/uL (4.10-5.10); RED CELL DISTRI WIDTH 12.7 % (0-14.5); WHITE BLOOD COUNT 4.4 10*3/uL (4.8-10.8)
== END | disposition home or self-care (01) ==
LOC: LAB 03:10 → SDC 03:10 → EDSTATUS 11:00
PROVIDERS: ATTEND Nurse Practitioner Family
DX: R92.8 Other abnormal and inconclusive findings on diagnostic imaging of breast (principal); D64.9 Anemia, unspecified; I10 Essential (primary) hypertension; E78.5 Hyperlipidemia, unspecified; E03.9 Hypothyroidism, unspecified; K21.9 Gastro-esophageal reflux disease without esophagitis; I48.91 Unspecified atrial fibrillation; K59.00 Constipation, unspecified; K58.9 Irritable bowel syndrome, unspecified; Z85.828 Personal history of other malignant neoplasm of skin; Z79.899 Other long term (current) drug therapy

== ENCOUNTER → 2022-09-12 | Outpatient (CLI) | payer MEDICARE | END | disposition home or self-care (01) | LOC: RESCLI 02:56 | PROVIDERS: ATTEND Family Medicine | DX: I48.91 Unspecified atrial fibrillation (principal); I10 Essential (primary) hypertension; E03.9 Hypothyroidism, unspecified; F41.9 Anxiety disorder, unspecified; K21.9 Gastro-esophageal reflux disease without esophagitis; K59.00 Constipation, unspecified; E78.5 Hyperlipidemia, unspecified; R42 Dizziness and giddiness; E55.9 Vitamin D deficiency, unspecified; J30.2 Other seasonal allergic rhinitis; Z98.890 Other specified postprocedural states; Z88.8 Allergy status to other drugs, medicaments and biological substances; Z79.899 Other long term (current) drug therapy ==

== ENCOUNTER → 2022-09-18 | Outpatient (CLI) | payer MEDICARE ==
[2022-09-21 20:07] LABS: CLONAZEPAM (KLONOPIN),SERUM 22 ng/mL (20-70)
== END | disposition home or self-care (01) ==
LOC: LAB 14:13
PROVIDERS: ATTEND Physician Assistant
DX: Z51.81 Encounter for therapeutic drug level monitoring (principal)

== ENCOUNTER → 2022-09-22 | Outpatient (CLI) | payer MEDICARE | END | disposition home or self-care (01) | LOC: ORTHO 00:54 | PROVIDERS: ATTEND Orthopaedic Surgery | DX: M17.0 Bilateral primary osteoarthritis of knee (principal) ==

== ENCOUNTER 2022-11-14 12:54 | Inpatient (IN) | payer MEDICARE ==
[~2022-11-14] VITALS: Ht 160 cm; Wt 72.2 kg
[2022-11-14] MEDS ORDERED: ZOLOFT50 MG PO (19:01)
[2022-11-14 21:46] VITALS: BP 163/74
[2022-11-14] MEDS ORDERED: LOSARTAN POTAS100 M1 PO (22:02)
[2022-11-15 08:21] LABS: VITAMIN D, 25-HYDROXY 32.5 ng/mL (30-100)
[2022-11-15 09:29] VITALS: BP 146/82
[2022-11-15 14:00] VITALS: BP 146/82
[2022-11-15 19:13] VITALS: BP 137/64
[2022-11-16 07:32] VITALS: BP 169/69
[2022-11-16 20:00] VITALS: BP 141/65
[2022-11-17 07:27] VITALS: BP 129/60
[2022-11-17 20:00] VITALS: BP 131/71
[2022-11-18 08:00] VITALS: BP 152/68
[2022-11-18 20:00] VITALS: BP 133/70
[2022-11-19 07:39] VITALS: BP 150/84
[2022-11-19 20:00] VITALS: BP 140/66
[2022-11-20 08:00] VITALS: BP 171/75
[2022-11-20 11:45] VITALS: BP 150/80
[2022-11-20 20:00] VITALS: BP 138/75
[2022-11-21 07:38] VITALS: BP 146/83
[2022-11-21 20:00] VITALS: BP 130/77
[2022-11-22 07:36] VITALS: BP 142/71
[2022-11-22 20:00] VITALS: BP 114/60
[2022-11-23 08:01] VITALS: BP 154/81
[2022-11-23 20:00] VITALS: BP 134/66
[2022-11-24 07:22] VITALS: BP 129/71
[2022-11-24 20:00] VITALS: BP 128/65
[2022-11-24 22:06] LABS: CLONAZEPAM (KLONOPIN),SERUM 17 ng/mL (20-70)
[2022-11-25 07:10] VITALS: BP 137/73
[2022-11-25 20:00] VITALS: BP 144/67
[2022-11-26 07:32] VITALS: BP 148/85
[2022-11-26 20:00] VITALS: BP 146/91
[2022-11-27 06:59] VITALS: BP 148/84
[2022-11-27 20:00] VITALS: BP 148/84
[2022-11-28 08:00] VITALS: BP 156/70
[2022-11-28 20:00] VITALS: BP 137/65
[2022-11-29 08:00] VITALS: BP 148/78
[2022-11-29 20:00] VITALS: BP 141/67
[2022-11-30 07:58] VITALS: BP 137/55
[2022-11-30] MEDS ORDERED: HYDROXYZINE HCL25 MG PO (10:18)
[2022-11-30] MEDS ORDERED: SERTRALINE HYDR50 MG PO (10:18)
[2022-11-30 20:00] VITALS: BP 130/65
[2022-12-01 08:00] VITALS: BP 154/68
== END 2022-12-01 16:22 | disposition home or self-care (01) | DRG 885 ==
LOC: 3N 12:54
PROVIDERS: ADMIT Psychiatry & Neurology Psychiatry; ATTEND Psychiatry & Neurology Psychiatry
DX: F33.2 Major depressive disorder, recurrent severe without psychotic features (principal); N39.0 Urinary tract infection, site not specified; F41.1 Generalized anxiety disorder; F34.1 Dysthymic disorder; I48.91 Unspecified atrial fibrillation; K21.9 Gastro-esophageal reflux disease without esophagitis; I10 Essential (primary) hypertension; S93.401A Sprain of unspecified ligament of right ankle, initial encounter; E78.5 Hyperlipidemia, unspecified; F41.0 Panic disorder [episodic paroxysmal anxiety]; F42.9 Obsessive-compulsive disorder, unspecified; E03.9 Hypothyroidism, unspecified; Z88.8 Allergy status to other drugs, medicaments and biological substances; X58.XXXA Exposure to other specified factors, initial encounter; Y93.89 Activity, other specified; Y92.89 Other specified places as the place of occurrence of the external cause; Y99.8 Other external cause status

== ENCOUNTER 2023-01-16 20:25 | Inpatient (IN) | payer MEDICARE ==
[~2023-01-16] VITALS: Ht 160 cm; Wt 68.5 kg
[~2023-01-16 20:25] MED LIST changes: +AMOXICILLIN875 MG PO; +HYDROXYZINE HCL25 MG PO; -LIPITOR20 MG PO; +LIPITOR40 MG PO; +LOSARTAN POTAS100 M1 PO; +OMEPRAZOLE40 MG PO; +ONDANSETRON HYDR4 M1 PO; -PRILOSEC20 M1 PO; +SERTRALINE HCL150 MG PO; +SERTRALINE HYDR50 MG PO; -VITAMIN E200 UNI1 PO; +VITAMIN E400 UNIT PO
[2023-01-16] MEDS ORDERED: ATIVAN1 MG PO ×2 (21:57→21:58)
[2023-01-16] MEDS ORDERED: ATIVAN2 MG/1 ML IM (21:59)
[2023-01-16] MEDS ORDERED: ZOLOFT100 MG PO (22:00)
[2023-01-16 22:33] VITALS: BP 132/68
[2023-01-17 07:34] VITALS: BP 136/71
[2023-01-17 20:00] VITALS: BP 115/68
[2023-01-18 07:56] VITALS: BP 156/87
[2023-01-18 20:00] VITALS: BP 130/78
[2023-01-19 07:00] VITALS: BP 123/59
[2023-01-19 20:00] VITALS: BP 140/76
[2023-01-20 08:00] VITALS: BP 146/73
[2023-01-20 20:00] VITALS: BP 126/74
[2023-01-21 07:46] VITALS: BP 126/52
[2023-01-21 20:00] VITALS: BP 137/74
[2023-01-22 07:36] VITALS: BP 142/75
[2023-01-22 20:00] VITALS: BP 153/79
[2023-01-23 07:50] VITALS: BP 144/74
[2023-01-23 20:00] VITALS: BP 144/76
[2023-01-24 07:42] VITALS: BP 122/66
[2023-01-24 20:00] VITALS: BP 121/57
[2023-01-25 07:17] VITALS: BP 135/66
[2023-01-25 20:00] VITALS: BP 144/80
[2023-01-26 08:00] VITALS: BP 138/88
[2023-01-26 20:00] VITALS: BP 134/63
[2023-01-27 07:43] VITALS: BP 143/87
[2023-01-27 20:00] VITALS: BP 147/77
[2023-01-28 08:00] VITALS: BP 130/70
[2023-01-28] MEDS ORDERED: METAMUCIL0.4 G1 PO (15:18)
[2023-01-28 20:08] VITALS: BP 150/59
[2023-01-29 07:30] VITALS: BP 151/88
[2023-01-29] MEDS ORDERED: CLONAZEPAM1 MG PO ×2 (10:56)
[2023-01-29] MEDS ORDERED: PRISTIQ50 MG PO (10:56)
[2023-01-29] MEDS ORDERED: RIVASTIGMINE1 EACH T (10:56)
== END 2023-01-29 12:23 | disposition home or self-care (01) | DRG 885 ==
LOC: 3N 20:25
PROVIDERS: ADMIT Psychiatry & Neurology Psychiatry; ATTEND Psychiatry & Neurology Psychiatry
PROC: 0HBRXZZ Excision of Toe Nail, External Approach (ICD-10-PCS; principal; 2023-01-19)
PROC: 0HBRXZZ Excision of Toe Nail, External Approach (ICD-10-PCS; 2023-01-19)
PROC: 0HBRXZZ Excision of Toe Nail, External Approach (ICD-10-PCS; 2023-01-19)
PROC: 0HBRXZZ Excision of Toe Nail, External Approach (ICD-10-PCS; 2023-01-19)
PROC: 0HBRXZZ Excision of Toe Nail, External Approach (ICD-10-PCS; 2023-01-19)
PROC: 0HBRXZZ Excision of Toe Nail, External Approach (ICD-10-PCS; 2023-01-19)
PROC: 0HBRXZZ Excision of Toe Nail, External Approach (ICD-10-PCS; 2023-01-19)
PROC: 0HBRXZZ Excision of Toe Nail, External Approach (ICD-10-PCS; 2023-01-19)
PROC: 0HBRXZZ Excision of Toe Nail, External Approach (ICD-10-PCS; 2023-01-19)
PROC: 0HBRXZZ Excision of Toe Nail, External Approach (ICD-10-PCS; 2023-01-19)
PROC: GZHZZZZ Group Psychotherapy (ICD-10-PCS; 2023-01-19)
DX: F33.2 Major depressive disorder, recurrent severe without psychotic features (principal); N30.00 Acute cystitis without hematuria; E77.8 Other disorders of glycoprotein metabolism; K21.9 Gastro-esophageal reflux disease without esophagitis; I48.91 Unspecified atrial fibrillation; F34.1 Dysthymic disorder; L60.8 Other nail disorders; F41.1 Generalized anxiety disorder; I10 Essential (primary) hypertension; E78.5 Hyperlipidemia, unspecified; E03.9 Hypothyroidism, unspecified; F42.9 Obsessive-compulsive disorder, unspecified; G31.84 Mild cognitive impairment of uncertain or unknown etiology; Z90.49 Acquired absence of other specified parts of digestive tract; Z90.710 Acquired absence of both cervix and uterus; Z80.3 Family history of malignant neoplasm of breast; Z79.899 Other long term (current) drug therapy; Z82.5 Family history of asthma and other chronic lower respiratory diseases; Z88.8 Allergy status to other drugs, medicaments and biological substances

== ENCOUNTER → 2023-03-12 | Outpatient (CLI) | payer MEDICARE ==
[~2023-03-12] MED LIST changes: +ATIVAN1 MG PO; +ATIVAN2 MG/1 ML IM; +METAMUCIL0.4 G1 PO; +PRISTIQ50 MG PO; +RIVASTIGMINE1 EACH T; +ZOLOFT100 MG PO
== END | disposition home or self-care (01) ==
LOC: ORTHO 08:24
PROVIDERS: ATTEND Orthopaedic Surgery
DX: S82.401A Unspecified fracture of shaft of right fibula, initial encounter for closed fracture (principal); M17.11 Unilateral primary osteoarthritis, right knee; M21.861 Other specified acquired deformities of right lower leg; X58.XXXA Exposure to other specified factors, initial encounter; Y93.9 Activity, unspecified; Y92.89 Other specified places as the place of occurrence of the external cause; Y99.8 Other external cause status

== ENCOUNTER → 2023-04-11 | Outpatient (CLI) | payer MEDICARE | END | disposition home or self-care (01) | LOC: MAMMO 04-10 15:30 | PROVIDERS: ATTEND Nurse Practitioner Family | DX: Z12.31 Encounter for screening mammogram for malignant neoplasm of breast (principal) ==

== ENCOUNTER 2023-04-25 11:00 | Emergency (ER) | payer MEDICARE ==
[2023-04-25 11:26] VITALS: BP 160/79
[2023-04-25 11:44] LABS: BASO % 0.2 % (0.0-1.0); EOS % 0.6 % (1.0-4.0); HEMATOCRIT 40.7 % (37.0-47.0); LYMPH # 0.7 10*3/uL (1.3-4.4); LYMPH % 14.2 % (27.0-41.0); MEAN CELL VOLUME 93.3 fl (81.0-99.0); MEAN CORPUSCULAR HGB 30.3 pg (27.0-31.0); MEAN CORPUSCULAR HGB CONC 32.4 g/dl (33.0-37.0); MEAN PLATELET VOLUME 10.2 fl (9.6-12.3); MONO # 0.4 10*3/uL (0.1-1.0); MONO % 8.3 % (3.0-9.0); NEUT # 3.9 10*3/uL (2.3-7.9); NEUT % 76.5 % (47.0-73.0); PLATELET COUNT AUTOMATED 212 10*3/uL (130-400); RED BLOOD COUNT 4.36 10*6/uL (4.10-5.10); RED CELL DISTRI WIDTH 13.1 % (0-14.5); WHITE BLOOD COUNT 5.1 10*3/uL (4.8-10.8)
[2023-04-25 11:58] LABS: ACT PARTIAL THROMBO TIME 27.8 SECONDS (20.0-32.1)
[2023-04-25 12:06] LABS: ALKALINE PHOSPHATASE 59 U/L (46-116); BUN 10 mg/dl (9-23); CHLORIDE 110 mmol/L (98-107); POTASSIUM 3.1 mmol/L (3.4-5.1); SGPT/ALT 9 U/L (5-49); TOTAL PROTEIN 6.2 gm/dL (6.0-8.0)
[2023-04-25 12:37] LABS: BILIRUBIN Negative (Negative); BLOOD Negative (Negative); CLARITY Clear (Clear); COLOR Yellow (Yellow); GLUCOSE Negative (Negative); KETONE Negative (Negative); LEUKO ESTERASE Negative (Negative); NITRITE Negative (Negative); SPECIFIC GRAVITY <= 1.005 (1.001-1.030); UROBILINOGEN 0.2 E.U./dl (0.0-1.0)
[2023-04-25 12:45] LABS: BACTERIA 1+
[2023-04-25] MEDS ORDERED: CLONAZEPAM0.5 M2 PO (15:03)
[2023-04-25] MEDS ORDERED: OMEPRAZOLE MAGN20 MG PO (15:03)
[2023-04-25] MEDS ORDERED: Synthroid,Levo25 MCG PO (15:03)
[2023-04-25] MEDS ORDERED: FAMOTIDINE20 M1 PO (15:03)
[2023-04-25] MEDS ORDERED: DILTIAZEM HCL120 M2 PO (15:04)
[2023-04-25] MEDS ORDERED: XARELTO10 MG PO (15:05)
[2023-04-25] MEDS ORDERED: PRISTIQ50 MG PO (15:05)
[2023-04-25] MEDS ORDERED: EXELON1 EACH TD (15:06)
== END 2023-04-25 14:25 | disposition home or self-care (01) ==
LOC: ED 11:00
PROVIDERS: Family Medicine
DX: S06.0X0A Concussion without loss of consciousness, initial encounter (principal); R82.71 Bacteriuria; R42 Dizziness and giddiness; I10 Essential (primary) hypertension; K21.9 Gastro-esophageal reflux disease without esophagitis; F41.9 Anxiety disorder, unspecified; F32.A Depression, unspecified; E78.00 Pure hypercholesterolemia, unspecified; Z88.8 Allergy status to other drugs, medicaments and biological substances; Z95.5 Presence of coronary angioplasty implant and graft; R10.2 Pelvic and perineal pain; Z90.710 Acquired absence of both cervix and uterus; Z90.49 Acquired absence of other specified parts of digestive tract; Z98.890 Other specified postprocedural states; W01.10XA Fall on same level from slipping, tripping and stumbling with subsequent striking against unspecified object, initial encounter; Y93.89 Activity, other specified; Y92.89 Other specified places as the place of occurrence of the external cause; Y99.8 Other external cause status

== ENCOUNTER → 2023-05-29 | Outpatient (CLI) | payer MEDICARE ==
[~2023-05-29] MED LIST changes: +DILTIAZEM HCL120 M2 PO; +EXELON1 EACH TD; +OMEPRAZOLE MAGN20 MG PO; +Synthroid,Levo25 MCG PO; +XARELTO10 MG PO
[2023-05-29 16:39] LABS: BUN 8 mg/dl (9-23); CHLORIDE 108 mmol/L (98-107); POTASSIUM 3.2 mmol/L (3.4-5.1)
== END | disposition home or self-care (01) ==
LOC: LAB 15:51
PROVIDERS: ATTEND Internal Medicine Cardiovascular Disease
DX: I48.0 Paroxysmal atrial fibrillation (principal)

== ENCOUNTER 2023-06-28 18:57 | Emergency (ER) | payer MEDICARE ==
[~2023-06-28] VITALS: Ht 160 cm; Wt 66.7 kg
[2023-06-28 18:58] VITALS: BP 162/76
[2023-06-28 19:24] LABS: BASO % 0.4 % (0.0-1.0); EOS # 0.1 10*3/uL (0.0-0.4); EOS % 1.1 % (1.0-4.0); HEMATOCRIT 38.6 % (37.0-47.0); LYMPH # 1.3 10*3/uL (1.3-4.4); LYMPH % 25.7 % (27.0-41.0); MEAN CELL VOLUME 94.6 fl (81.0-99.0); MEAN CORPUSCULAR HGB 30.6 pg (27.0-31.0); MEAN CORPUSCULAR HGB CONC 32.4 g/dl (33.0-37.0); MEAN PLATELET VOLUME 10.3 fl (9.6-12.3); MONO # 0.6 10*3/uL (0.1-1.0); MONO % 11.1 % (3.0-9.0); NEUT # 3.2 10*3/uL (2.3-7.9); NEUT % 61.7 % (47.0-73.0); PLATELET COUNT AUTOMATED 219 10*3/uL (130-400); RED BLOOD COUNT 4.08 10*6/uL (4.10-5.10); RED CELL DISTRI WIDTH 13.7 % (0-14.5); WHITE BLOOD COUNT 5.2 10*3/uL (4.8-10.8)
[2023-06-28 19:37] LABS: ACT PARTIAL THROMBO TIME 33.4 SECONDS (20.0-32.1)
[2023-06-28 19:47] LABS: ALKALINE PHOSPHATASE 58 U/L (46-116); BUN 14 mg/dl (9-23); CHLORIDE 108 mmol/L (98-107); LIPASE 35 U/L (12-53); POTASSIUM 3.3 mmol/L (3.4-5.1); TOTAL PROTEIN 5.9 gm/dL (6.0-8.0)
[2023-06-28 19:48] LABS: SGPT/ALT < 7 U/L (5-49)
[2023-06-28 20:21] LABS: BILIRUBIN Negative (Negative); BLOOD Negative (Negative); CLARITY Clear (Clear); COLOR Yellow (Yellow); GLUCOSE Negative (Negative); KETONE Negative (Negative); LEUKO ESTERASE 1+ (Negative); NITRITE Negative (Negative); PH 5.5 (4.5-8.0); UROBILINOGEN 0.2 E.U./dl (0.0-1.0)
[2023-06-28 20:28] LABS: URINE AMPHETAMINES Negative (1000ng/ml); URINE BARBITURATES Negative (200ng/ml); URINE BENZODIAZEPINES Negative (200ng/ml); URINE CANNABINOIDS (THC) Negative (50ng/ml); URINE COCAINE Negative (300ng/ml); URINE METHADONE Negative (300ng/ml); URINE OPIATES Negative (300ng/ml); URINE PHENCYCLIDINE Negative (25ng/ml)
[2023-06-28 20:38] LABS: BACTERIA 1+; MUCOUS 1+; WBC 16-20 wbc/hpf (0-5)
[2023-06-28] MEDS ORDERED: Ciprofloxacin Hydrochloride 500 MG TAB PO ONE (20:45)
[2023-06-28] MEDS ORDERED: POTASSIUM CHLORIDE 20 MEQ TAB PO ONE (20:45)
[2023-06-28] MEDS ORDERED: LOSARTAN POTAS100 M1 PO (20:59)
[2023-06-28] MEDS ORDERED: LIPITOR20 MG PO (21:03)
[2023-06-28] MEDS ORDERED: CALCIUM 600-VI1 EAC3 PO (23:24)
[2023-06-28] MEDS ORDERED: VITAMIN B121000 MC3 PO (23:25)
[2023-06-28] MEDS ORDERED: VITAMIN D350 MCG PO (23:29)
[2023-06-28] MEDS ORDERED: STOOL SOFTENER100 M3 PO (23:30)
[2023-06-28] MEDS ORDERED: VITAMIN E400 UNIT PO (23:30)
[2023-06-28] MEDS ORDERED: MIRALAX17 GM PO (23:31)
== END 2023-06-28 21:21 ==
LOC: ED 18:57
PROVIDERS: Emergency Medicine; Internal Medicine
DX: Z04.6 Encounter for general psychiatric examination, requested by authority (principal); F41.9 Anxiety disorder, unspecified; Z20.822 Contact with and (suspected) exposure to COVID-19; I48.91 Unspecified atrial fibrillation; R51.9 Headache, unspecified; Z88.8 Allergy status to other drugs, medicaments and biological substances; Z79.899 Other long term (current) drug therapy; Z90.49 Acquired absence of other specified parts of digestive tract; Z90.711 Acquired absence of uterus with remaining cervical stump

== ENCOUNTER 2023-06-28 21:00 | Inpatient (IN) | payer MEDICARE ==
[~2023-06-28] VITALS: Ht 160 cm; Wt 63.6 kg
[2023-06-28] MEDS ORDERED: LIPITOR20 MG PO (21:03)
[2023-06-28] MEDS ORDERED: CALCIUM 600-VI1 EAC3 PO (23:24)
[2023-06-28] MEDS ORDERED: VITAMIN B121000 MC3 PO (23:25)
[2023-06-28 23:27] VITALS: BP 137/74
[2023-06-28] MEDS ORDERED: VITAMIN D350 MCG PO (23:29)
[2023-06-28] MEDS ORDERED: STOOL SOFTENER100 M3 PO (23:30)
[2023-06-28] MEDS ORDERED: VITAMIN E400 UNIT PO (23:30)
[2023-06-28] MEDS ORDERED: MIRALAX17 GM PO (23:31)
[2023-06-29] MEDS ORDERED: ACETAMINOPHEN 325 MG TAB PO PRN (00:25)
[2023-06-29] MEDS ORDERED: MG-AL HYDROXIDE/SIMETICONE 30 ML UDC PO PRN (00:25)
[2023-06-29] MEDS ORDERED: Magnesium Hydroxide 30 ML UDC PO PRN (00:25)
[2023-06-29] MEDS ORDERED: Menthol/Zinc Oxide 4 GM THIN T PRN (00:30)
[2023-06-29] MEDS ORDERED: Fosfomycin Tromethamine 3 GM PDS PO ONE ×2 (03:15→07:25)
[2023-06-29] MEDS ORDERED: Levothyroxine Sodium 25 MCG TAB PO SCH (06:00)
[2023-06-29] MEDS ORDERED: Pantoprazole Sodium 40 MG TAB PO SCH (06:00)
[2023-06-29 07:14] LABS: BASO % 0.5 % (0.0-1.0); EOS # 0.1 10*3/uL (0.0-0.4); EOS % 2.1 % (1.0-4.0); HEMATOCRIT 37.4 % (37.0-47.0); LYMPH # 1.2 10*3/uL (1.3-4.4); LYMPH % 32.3 % (27.0-41.0); MEAN CELL VOLUME 95.4 fl (81.0-99.0); MEAN CORPUSCULAR HGB 30.9 pg (27.0-31.0); MEAN CORPUSCULAR HGB CONC 32.4 g/dl (33.0-37.0); MONO # 0.5 10*3/uL (0.1-1.0); MONO % 11.8 % (3.0-9.0); PLATELET COUNT AUTOMATED 194 10*3/uL (130-400); RED BLOOD COUNT 3.92 10*6/uL (4.10-5.10); RED CELL DISTRI WIDTH 13.9 % (0-14.5); WHITE BLOOD COUNT 3.8 10*3/uL (4.8-10.8)
[2023-06-29 07:28] VITALS: BP 153/96
[2023-06-29 07:38] LABS: ALKALINE PHOSPHATASE 52 U/L (46-116); BUN 9 mg/dl (9-23); CHLORIDE 110 mmol/L (98-107); CHOLESTEROL 174 mg/dL (<200); LDL CHOLESTEROL 88 mg/dL (9-159); POTASSIUM 3.8 mmol/L (3.4-5.1); SGPT/ALT 7 U/L (5-49); TOTAL PROTEIN 5.5 gm/dL (6.0-8.0); TRIGLYCERIDES 154 mg/dl (<150)
[2023-06-29 07:42] LABS: VITAMIN D, 25-HYDROXY 32.2 ng/mL (30-100)
[2023-06-29 08:00] VITALS: BP 153/96
[2023-06-29] MEDS ORDERED: CALCIUM CARBONATE/VITAMIN D3 500 MG/200 IU TABLET PO SCH (09:00)
[2023-06-29] MEDS ORDERED: Cholecalciferol 2,000 UNIT TABLET (50 MCG) PO SCH (09:00)
[2023-06-29] MEDS ORDERED: CYANOCOBALAMIN 500 MCG TAB PO SCH (09:00)
[2023-06-29] MEDS ORDERED: ATORVASTATIN CALCIUM 20 MG TAB PO SCH (10:00)
[2023-06-29] MEDS ORDERED: Losartan Potassium 50 MG TAB PO SCH (10:00)
[2023-06-29] MEDS ORDERED: DILTIAZEM CD 120 MG CAP PO SCH (10:00)
[2023-06-29] MEDS ORDERED: FAMOTIDINE 20 MG TAB PO SCH (10:00)
[2023-06-29] MEDS ORDERED: clonAZEPAM 0.5 MG TAB PO SCH (14:00)
[2023-06-29] MEDS ORDERED: RIVAROXABAN 20 MG TAB PO SCH (17:00)
[2023-06-29 18:49] VITALS: BP 144/62
[2023-06-29] MEDS ORDERED: Rivastigmine Tartrate 1.5 MG CAP PO SCH (21:00)
[2023-06-29] MEDS ORDERED: clonAZEPAM 1 MG TAB PO SCH (21:00)
[2023-06-30 07:52] VITALS: BP 144/78
[2023-06-30 08:01] LABS: BASO % 0.5 % (0.0-1.0); EOS # 0.1 10*3/uL (0.0-0.4); EOS % 2.2 % (1.0-4.0); HEMATOCRIT 43.1 % (37.0-47.0); LYMPH # 1.4 10*3/uL (1.3-4.4); LYMPH % 34.5 % (27.0-41.0); MEAN CORPUSCULAR HGB 30.3 pg (27.0-31.0); MEAN CORPUSCULAR HGB CONC 31.6 g/dl (33.0-37.0); MEAN PLATELET VOLUME 9.8 fl (9.6-12.3); MONO # 0.4 10*3/uL (0.1-1.0); MONO % 9.2 % (3.0-9.0); NEUT # 2.2 10*3/uL (2.3-7.9); NEUT % 53.4 % (47.0-73.0); PLATELET COUNT AUTOMATED 233 10*3/uL (130-400); RED BLOOD COUNT 4.49 10*6/uL (4.10-5.10); WHITE BLOOD COUNT 4.1 10*3/uL (4.8-10.8)
[2023-06-30 08:22] LABS: BUN 10 mg/dl (9-23); CHLORIDE 107 mmol/L (98-107); POTASSIUM 3.6 mmol/L (3.4-5.1)
[2023-06-30] MEDS ORDERED: VILAZODONE HYDROCHLORIDE 40 MG PO SCH (09:00)
[2023-06-30] MEDS ORDERED: Polyethylene Glycol 3350 17 GM PACKET PO SCH (09:50)
[2023-06-30] MEDS ORDERED: Miconazole Nitrate 2% 15 GM TUBE T SCH (18:00)
[2023-06-30] MEDS ORDERED: PREPARATION H SRF/SHARK LIVER 1 OZ TUBE R PRN (18:20)
[2023-06-30 20:00] VITALS: BP 135/73
[2023-07-01 08:00] VITALS: BP 147/88
[2023-07-01] MEDS ORDERED: clonAZEPAM 0.5 MG TAB PO SCH (14:00)
[2023-07-01 20:00] VITALS: BP 140/78
[2023-07-01] MEDS ORDERED: clonAZEPAM 1 MG TAB PO SCH (21:00)
[2023-07-01] MEDS ORDERED: Ondansetron Hydrochloride 4 MG/2 ML VIAL IV PRN (22:45)
[2023-07-01] MEDS ORDERED: Ondansetron Hydrochloride 4 MG TAB PO PRN (23:01)
[2023-07-02 08:00] VITALS: BP 144/84
[2023-07-02] MEDS ORDERED: hydrOXYzine pamoate 25 MG CAP PO PRN (10:00)
[2023-07-02] MEDS ORDERED: clonAZEPAM 1 MG TAB PO ONE (10:05)
[2023-07-02] MEDS ORDERED: clonAZEPAM 0.5 MG TAB PO SCH (14:00)
[2023-07-02] MEDS ORDERED: Rivastigmine Tartrate 1.5 MG CAP PO SCH (17:30)
[2023-07-02 20:00] VITALS: BP 128/75
[2023-07-02] MEDS ORDERED: clonAZEPAM 1 MG TAB PO SCH (21:00)
[2023-07-03 07:33] VITALS: BP 152/74
[2023-07-03] MEDS ORDERED: Rivastigmine Tartrate 3 MG CAP PO SCH (17:30)
[2023-07-03 18:51] VITALS: BP 132/77
[2023-07-04 08:51] VITALS: BP 132/72
[2023-07-04 20:00] VITALS: BP 120/68
[2023-07-04] MEDS ORDERED: DICLOFENAC SODIUM 100 GM TUBE T SCH (21:00)
[2023-07-05 08:00] VITALS: BP 166/77
[2023-07-05] MEDS ORDERED: Pantoprazole Sodium 40 MG TAB PO SCH (09:00)
[2023-07-05] MEDS ORDERED: VILAZODONE HYDROCHLORIDE 40 MG PO SCH (10:06)
[2023-07-05] MEDS ORDERED: COLACE100 MG PO (15:05)
[2023-07-05 20:00] VITALS: BP 120/57
[2023-07-05] MEDS ORDERED: DOCUSATE SODIUM 100 MG CAP PO SCH (21:00)
[2023-07-06 08:00] VITALS: BP 138/78
[2023-07-06] MEDS ORDERED: Rivastigmine Tartrate 1.5 MG CAP PO SCH (17:30)
[2023-07-06 20:00] VITALS: BP 147/73
[2023-07-07 08:00] VITALS: BP 155/74
[2023-07-07] MEDS ORDERED: Pantoprazole Sodium 40 MG TAB PO SCH (17:00)
[2023-07-07 20:00] VITALS: BP 154/72
[2023-07-08 06:10] LABS: BASO % 0.5 % (0.0-1.0); EOS # 0.2 10*3/uL (0.0-0.4); EOS % 4.4 % (1.0-4.0); HEMATOCRIT 37.9 % (37.0-47.0); LYMPH # 1.4 10*3/uL (1.3-4.4); LYMPH % 31.9 % (27.0-41.0); MEAN CELL VOLUME 96.4 fl (81.0-99.0); MEAN CORPUSCULAR HGB 31.3 pg (27.0-31.0); MEAN CORPUSCULAR HGB CONC 32.5 g/dl (33.0-37.0); MEAN PLATELET VOLUME 10.2 fl (9.6-12.3); MONO # 0.5 10*3/uL (0.1-1.0); MONO % 10.5 % (3.0-9.0); NEUT # 2.3 10*3/uL (2.3-7.9); NEUT % 52.5 % (47.0-73.0); PLATELET COUNT AUTOMATED 192 10*3/uL (130-400); RED BLOOD COUNT 3.93 10*6/uL (4.10-5.10); RED CELL DISTRI WIDTH 13.6 % (0-14.5); WHITE BLOOD COUNT 4.3 10*3/uL (4.8-10.8)
[2023-07-08 06:29] LABS: ALKALINE PHOSPHATASE 68 U/L (46-116); BUN 13 mg/dl (9-23); CHLORIDE 107 mmol/L (98-107); POTASSIUM 4.2 mmol/L (3.4-5.1); SGPT/ALT 56 U/L (5-49); TOTAL PROTEIN 5.4 gm/dL (6.0-8.0)
[2023-07-08 08:00] VITALS: BP 132/67
[2023-07-08 20:00] VITALS: BP 141/83
[2023-07-09] MEDS ORDERED: Pantoprazole Sodium 40 MG TAB PO SCH ×2 (07:00→16:00)
[2023-07-09 08:00] VITALS: BP 145/71
[2023-07-09 20:00] VITALS: BP 116/60
[2023-07-10 06:53] LABS: BASO % 0.8 % (0.0-1.0); EOS # 0.2 10*3/uL (0.0-0.4); EOS % 5.6 % (1.0-4.0); HEMATOCRIT 37.9 % (37.0-47.0); LYMPH # 1.2 10*3/uL (1.3-4.4); LYMPH % 33.1 % (27.0-41.0); MEAN CELL VOLUME 96.7 fl (81.0-99.0); MEAN CORPUSCULAR HGB 30.9 pg (27.0-31.0); MEAN CORPUSCULAR HGB CONC 31.9 g/dl (33.0-37.0); MEAN PLATELET VOLUME 10.7 fl (9.6-12.3); MONO # 0.4 10*3/uL (0.1-1.0); MONO % 11.7 % (3.0-9.0); NEUT # 1.8 10*3/uL (2.3-7.9); NEUT % 48.8 % (47.0-73.0); PLATELET COUNT AUTOMATED 211 10*3/uL (130-400); RED BLOOD COUNT 3.92 10*6/uL (4.10-5.10); RED CELL DISTRI WIDTH 13.5 % (0-14.5); WHITE BLOOD COUNT 3.6 10*3/uL (4.8-10.8)
[2023-07-10 07:29] LABS: ALKALINE PHOSPHATASE 65 U/L (46-116); BUN 12 mg/dl (9-23); CHLORIDE 107 mmol/L (98-107); POTASSIUM 4.4 mmol/L (3.4-5.1); SGPT/ALT 37 U/L (5-49); TOTAL PROTEIN 5.2 gm/dL (6.0-8.0)
[2023-07-10 08:00] VITALS: BP 130/88
[2023-07-10 20:00] VITALS: BP 105/65
[2023-07-11 08:19] VITALS: BP 146/74
[2023-07-11] MEDS ORDERED: Dicyclomine Hydrochloride 10 MG CAP PO PRN (12:30)
[2023-07-11 20:00] VITALS: BP 130/73
[2023-07-12 08:00] VITALS: BP 148/69
[2023-07-12] MEDS ORDERED: IOHEXOL 300 MG/ML 100 ML VIAL IV ONE (09:40)
[2023-07-12 20:00] VITALS: BP 116/52
[2023-07-13 07:48] VITALS: BP 153/99
[2023-07-13] MEDS ORDERED: VILAZODONE HYDROCHLORIDE 40 MG PO SCH (09:00)
[2023-07-13 20:00] VITALS: BP 122/59
[2023-07-14 08:17] VITALS: BP 131/72
[2023-07-14 20:00] VITALS: BP 120/51
[2023-07-15 08:25] VITALS: BP 142/87
[2023-07-15 20:00] VITALS: BP 118/65
[2023-07-16 06:31] LABS: BASO % 0.6 % (0.0-1.0); EOS # 0.3 10*3/uL (0.0-0.4); EOS % 5.1 % (1.0-4.0); HEMATOCRIT 41.8 % (37.0-47.0); LYMPH # 1.8 10*3/uL (1.3-4.4); LYMPH % 34.5 % (27.0-41.0); MEAN CELL VOLUME 96.5 fl (81.0-99.0); MEAN CORPUSCULAR HGB 31.2 pg (27.0-31.0); MEAN CORPUSCULAR HGB CONC 32.3 g/dl (33.0-37.0); MONO # 0.4 10*3/uL (0.1-1.0); MONO % 7.9 % (3.0-9.0); NEUT # 2.6 10*3/uL (2.3-7.9); NEUT % 51.7 % (47.0-73.0); PLATELET COUNT AUTOMATED 239 10*3/uL (130-400); RED BLOOD COUNT 4.33 10*6/uL (4.10-5.10); RED CELL DISTRI WIDTH 13.7 % (0-14.5); WHITE BLOOD COUNT 5.1 10*3/uL (4.8-10.8)
[2023-07-16 07:03] LABS: ALKALINE PHOSPHATASE 65 U/L (46-116); BUN 8 mg/dl (9-23); CHLORIDE 107 mmol/L (98-107); POTASSIUM 4.2 mmol/L (3.4-5.1); SGPT/ALT 20 U/L (5-49); TOTAL PROTEIN 5.9 gm/dL (6.0-8.0)
[2023-07-16 07:46] VITALS: BP 124/68
[2023-07-16 20:00] VITALS: BP 120/53
[2023-07-17 08:43] VITALS: BP 146/84
[2023-07-17 19:01] VITALS: BP 123/59
[2023-07-17 22:05] LABS: CLONAZEPAM (KLONOPIN),SERUM 25 ng/mL (20-70)
[2023-07-18 08:25] VITALS: BP 141/67
[2023-07-18 20:00] VITALS: BP 146/76
[2023-07-19 08:00] VITALS: BP 129/64
[2023-07-19 20:00] VITALS: BP 125/66
[2023-07-20 07:40] VITALS: BP 150/91
[2023-07-20] MEDS ORDERED: SODIUM CHLORIDE 0.9% 500 ML BAG IV ONE (09:15)
[2023-07-20] MEDS ORDERED: Vancomycin Hydrochloride 1,000 MG VIAL IV ONE (09:15)
[2023-07-20 20:00] VITALS: BP 142/64
[2023-07-21 08:29] VITALS: BP 140/66
[2023-07-21 20:00] VITALS: BP 145/69
[2023-07-22 07:54] VITALS: BP 157/88
[2023-07-22 20:00] VITALS: BP 124/60
[2023-07-23 07:46] VITALS: BP 150/83
[2023-07-23 20:00] VITALS: BP 113/64
[2023-07-24 08:00] VITALS: BP 148/63
[2023-07-24] MEDS ORDERED: RIVASTIGMINE T1.5 M1 PO (09:48)
[2023-07-24] MEDS ORDERED: VILAZODONE HCL40 M1 PO (09:48)
[2023-07-24] MEDS ORDERED: CLONAZEPAM1 MG PO (09:48)
[2023-07-24] MEDS ORDERED: CLONAZEPAM0.5 M2 PO (09:48)
== END 2023-07-24 11:30 | disposition home health service (06) | DRG 885 ==
LOC: 3N 21:00
PROVIDERS: Counselor Professional; Registered Nurse; Student in an Organized Health Care Education/Training Program; ADMIT Psychiatry & Neurology Psychiatry; ATTEND Psychiatry & Neurology Psychiatry
PROC: GZHZZZZ Group Psychotherapy (ICD-10-PCS; principal; 2023-06-28)
PROC: GZ51ZZZ Individual Psychotherapy, Behavioral (ICD-10-PCS; 2023-06-28)
DX: F33.2 Major depressive disorder, recurrent severe without psychotic features (principal); F02.83 Dementia in other diseases classified elsewhere, unspecified severity, with mood disturbance; N30.00 Acute cystitis without hematuria; I48.11 Longstanding persistent atrial fibrillation; E44.0 Moderate protein-calorie malnutrition; K21.9 Gastro-esophageal reflux disease without esophagitis; F41.1 Generalized anxiety disorder; F34.1 Dysthymic disorder; G30.9 Alzheimer's disease, unspecified; K58.2 Mixed irritable bowel syndrome; Z68.24 Body mass index [BMI] 24.0-24.9, adult; I10 Essential (primary) hypertension; E03.9 Hypothyroidism, unspecified; E78.2 Mixed hyperlipidemia; Z82.5 Family history of asthma and other chronic lower respiratory diseases; Z90.710 Acquired absence of both cervix and uterus; Z90.49 Acquired absence of other specified parts of digestive tract; Z88.8 Allergy status to other drugs, medicaments and biological substances; Z79.899 Other long term (current) drug therapy

== ENCOUNTER → 2023-09-13 | Outpatient (CLI) | payer MEDICARE ==
[~2023-09-13] MED LIST changes: +CALCIUM 600-VI1 EAC3 PO; +COLACE100 MG PO; +LIPITOR20 MG PO; +MIRALAX17 GM PO; +RIVASTIGMINE T1.5 M1 PO; +STOOL SOFTENER100 M3 PO; +VILAZODONE HCL40 M1 PO; +VITAMIN B121000 MC3 PO; +VITAMIN D350 MCG PO
== END | disposition home or self-care (01) ==
LOC: RESCLI 02:31
PROVIDERS: ATTEND Student in an Organized Health Care Education/Training Program
DX: I10 Essential (primary) hypertension (principal); N95.2 Postmenopausal atrophic vaginitis; I48.91 Unspecified atrial fibrillation; F41.1 Generalized anxiety disorder; J30.89 Other allergic rhinitis; E03.9 Hypothyroidism, unspecified; K21.9 Gastro-esophageal reflux disease without esophagitis; E55.9 Vitamin D deficiency, unspecified; D50.8 Other iron deficiency anemias; R42 Dizziness and giddiness; E78.5 Hyperlipidemia, unspecified; F03.90 Unspecified dementia, unspecified severity, without behavioral disturbance, psychotic disturbance, mood disturbance, and anxiety; Z79.899 Other long term (current) drug therapy; Z88.8 Allergy status to other drugs, medicaments and biological substances; Z98.890 Other specified postprocedural states

== ENCOUNTER → 2023-12-24 | Day surgery (SDC) | payer MEDICARE ==
[~2023-12-24] VITALS: Ht 157.4 cm; Wt 62.6 kg
[~2023-12-24] MED LIST changes: +Lactated Ringer's Solution 1,000 ML IV ONE; +Lactated Ringer's Solution 1,000 ML IV SCH; +Lidocaine Hydrochloride 30 ML VIAL ONE; +Midazolam Hydrochloride 2 MG/2 ML VIAL IV ONE
[2023-12-24 06:57] VITALS: BP 156/63
[2023-12-24 08:00] VITALS: BP 153/70
[2023-12-24 08:15] VITALS: BP 142/69
[2023-12-24 08:28] VITALS: BP 160/72
== END | disposition home or self-care (01) ==
LOC: SDC 12-20 08:00
PROVIDERS: ATTEND Surgery
DX: C44.619 Basal cell carcinoma of skin of left upper limb, including shoulder (principal); I10 Essential (primary) hypertension; E78.5 Hyperlipidemia, unspecified; E03.9 Hypothyroidism, unspecified; K21.9 Gastro-esophageal reflux disease without esophagitis; I48.91 Unspecified atrial fibrillation; F41.9 Anxiety disorder, unspecified; I25.2 Old myocardial infarction; F32.A Depression, unspecified; Z88.8 Allergy status to other drugs, medicaments and biological substances; Z80.3 Family history of malignant neoplasm of breast; Z79.899 Other long term (current) drug therapy

== ENCOUNTER → 2024-06-19 | Outpatient (CLI) | payer MEDICARE ==
[~2024-06-19] MED LIST changes: -Lactated Ringer's Solution 1,000 ML IV ONE; -Lactated Ringer's Solution 1,000 ML IV SCH; -Lidocaine Hydrochloride 30 ML VIAL ONE; -Midazolam Hydrochloride 2 MG/2 ML VIAL IV ONE
== END | disposition home or self-care (01) ==
LOC: MAMMO 06-05 03:51
PROVIDERS: ATTEND Nurse Practitioner Family
DX: Z12.31 Encounter for screening mammogram for malignant neoplasm of breast (principal); R92.30 Dense breasts, unspecified

== ENCOUNTER → 2024-08-13 | Outpatient (CLI) | payer MEDICARE ==
[2024-08-13 17:30] LABS: BASO % 0.4 % (0.0-1.0); EOS % 0.8 % (1.0-4.0); HEMATOCRIT 39.3 % (37.0-47.0); MEAN CELL VOLUME 98.3 fl (81.0-99.0); MEAN CORPUSCULAR HGB 31.3 pg (27.0-31.0); MEAN CORPUSCULAR HGB CONC 31.8 g/dl (33.0-37.0); MEAN PLATELET VOLUME 11.1 fl (9.6-12.3); MONO # 0.4 10*3/uL (0.1-1.0); MONO % 8.7 % (3.0-9.0); NEUT # 3.4 10*3/uL (2.3-7.9); NEUT % 72.1 % (47.0-73.0); PLATELET COUNT AUTOMATED 195 10*3/uL (130-400); RED CELL DISTRI WIDTH 14.5 % (0-14.5); WHITE BLOOD COUNT 4.7 10*3/uL (4.8-10.8)
[2024-08-13 17:48] LABS: ALKALINE PHOSPHATASE 46 U/L (46-116); BUN 16 mg/dl (9-23); CHLORIDE 107 mmol/L (98-107); POTASSIUM 3.6 mmol/L (3.4-5.1); SGPT/ALT 12 U/L (5-49); TOTAL PROTEIN 6.2 gm/dL (6.0-8.0)
== END | disposition home or self-care (01) ==
LOC: LAB 11:46
PROVIDERS: ATTEND Nurse Practitioner Family
DX: I10 Essential (primary) hypertension (principal); E03.9 Hypothyroidism, unspecified; E78.5 Hyperlipidemia, unspecified; F33.2 Major depressive disorder, recurrent severe without psychotic features

== ENCOUNTER → 2024-12-05 | Outpatient (CLI) | payer MEDICARE ==
[~2024-12-05] MED LIST changes: +'CLONIDINE0.1 MG PO; +PREVACID15 M2 PO; +Vibra-Tab100 MG PO
== END | disposition home or self-care (01) ==
LOC: RAD 11-28 10:00
PROVIDERS: ATTEND Nurse Practitioner Family
DX: M81.0 Age-related osteoporosis without current pathological fracture (principal); Z13.820 Encounter for screening for osteoporosis; Z00.00 Encounter for general adult medical examination without abnormal findings